=== PATIENT | male | born 1970 | race American Indian/Alaskan Native ===

== ENCOUNTER 2016-02-04 16:07 | Emergency (ER) | payer OTHER ==
[2016-02-04] MEDS ORDERED: GEODON IM ONE ×2 (16:24→16:25)
[2016-02-04 16:55] LABS: Basophils % (Auto) 0.8 % (0.0-1.8); Eosinophils % (Auto) 1.2 % (0.0-4.3); Hematocrit 48.9 % (35.5-45.6); Hemoglobin 15.4 gm/dl (11.8-15.2); Mean Corpuscular HGB Conc 32 % (32-34); Mean Corpuscular Volume 80 fl (84-94); Platelet Count 320 K/mm3 (140-440); Red Blood Count 6.14 M/mm3 (3.65-5.03); Red Cell Distribution Width 16.4 % (13.2-15.2); White Blood Count 11.1 K/mm3 (4.5-11.0)
[2016-02-04 16:56] LABS: Mean Corpuscular Hemoglobin 25 pg (28-32)
[2016-02-04 16:56] LABS: Urine Drugs of Abuse Note Disclamer
--- NOTE | 2016-02-04 17:02 | Emergency Department Report ---
ED Psych HPI - General Chief Complaint: Psych Stated Complaint: MH EVAL Time Seen by Provider: 02/04/16 16:37 Source: family, police Mode of arrival: Ambulatory Limitations: Altered Mental Status - History of Present Illness Initial Comments: 45-year-old male presents to the emergency Department via law enforcement for mental health evaluation. Per report, the patient has not slept in 3 days. Law enforcement reports that the patient was somewhat confrontational with them. Further history is unable to be obtained from the patient due to his current clinical condition. -: unknown Associated Psychiatric Symptoms: racing thoughts Quality: constant Improves With: none Worsens With: none Treatments Prior to Arrival: placed on mental he - Related Data Allergies Allergy/AdvReac Type Severity Reaction Status Date / Time Unable to Assess Allergy Unverified 02/04/16 16:24 ED Review of Systems ROS: Stated complaint: MH EVAL Other details as noted in HPI Comment: Unobtainable due to pts medical conditions ED Past Medical Hx - Past Medical History Previous Medical History?: Yes Hx Psychiatric Treatment: Yes (bipolar) - Surgical History Past Surgical History?: No - Social History Smoking Status: Never Smoker ED Physical Exam - General Limitations: No Limitations General appearance: alert - Head Head exam: Present: atraumatic, normocephalic - Eye Eye exam: Present: normal appearance, PERRL, EOMI - ENT ENT exam: Present: normal exam, normal orophraynx, mucous membranes moist - Neck Neck exam: Present: normal inspection, full ROM. Absent: tenderness - Respiratory Respiratory exam: Present: normal lung sounds bilaterally. Absent: respiratory distress - Cardiovascular Cardiovascular Exam: Present: normal rhythm, tachycardia, normal heart sounds - GI/Abdominal GI/Abdominal exam: Present: soft, normal bowel sounds. Absent: distended, tenderness - Extremities Exam Extremities exam: Present: normal inspection, full ROM. Absent: tenderness - Back Exam Back exam: Present: normal inspection, full ROM. Absent: tenderness - Neurological Exam Neurological exam: Present: alert. Absent: motor sensory deficit - Psychiatric Psychiatric exam: Present: manic, other (patient is hyperverbal with racing, tangential thoughts. Patient not cooperative with questioning.) - Skin Skin exam: Present: warm, dry, intact ED Course Vital Signs 02/04/16 02/04/16 16:46 16:55 Temperature 98.1 F Pulse Rate 148 H Respiratory 18 Rate Blood Pressure 136/96 O2 Sat by Pulse 100 100 Oximetry - Reevaluation(s) Reevaluation #1: 02/04/16 17:01 Form 1013 has been signed and placed on the patient's chart. IM Geodon was administered. Checking labs for medical clearance. Patient will need mental health evaluation. Reevaluation #2: 02/04/16 17:29 Patient has been medically cleared and evaluated by mental health. Patient is currently awaiting placement. ED Medical Decision Making - Lab Data Result diagrams: 02/04/16 16:26 02/04/16 16:26 - Differential Diagnosis bipolar disorder, nohelia Critical care attestation.: If time is entered above; I have spent that time in minutes in the direct care of this critically ill patient, excluding procedure time. ED Disposition Clinical Impression: Bipolar disorder with severe nohelia Disposition: DC/TX PSY HOSP/PSY UNIT Is pt being admited?: No Condition: Stable Time of Disposition: 17:30
[2016-02-04 17:05] LABS: Bilirubin,Urine NEG (Negative); Blood,Urine NEG (Negative); Ketones,Urine TR mg/dL (Negative); Leukocyte Esterase,Urine NEG (Negative); Mucus,Urine 3+ /HPF; Nitrite,Urine NEG (Negative)
[2016-02-04 17:11] LABS: Anion Gap 29 mmol/L; BUN/Creatinine Ratio 11.33; Blood Urea Nitrogen 17 mg/dL (9-20); Carbon Dioxide 17 mmol/L (22-30); Chloride 95.5 mmol/L (98-107); Glucose 136 mg/dL (75-100); Sodium 137 mmol/L (137-145)
--- NOTE | 2016-02-05 16:21 | Emergency Department Report ---
Blank Doc - Documentation Documentation: Patient's medical record reviewed. Called the lab to verify values: sodium is 137, potassium 4.0, chloride 95.5, and anion gap of 29. Patient was medicated initially upon arrival but no standing psychiatric medications ordered. Tachycardic at 148 and agitated upon arrival with most recent heart rate 112 vitals this a.m. Requested that nurse to repeat heart rate. Patient awaiting acceptance. Heart rate was 106 when rechecked. I initiated IV fluids 1 L of normal saline. Went to room to assess patient while lying supine receiving IV fluids heart rate 96 and increases to 110 while I'm speaking to him. Patient states he has a history of elevated heart rate chronically. He denies chest pain, shortness of breath, Edema, calf tenderness, recent travel, or history of DVT. Patient is currently oriented and cooperative. He states he has a history of psychosis times one day then returns to normal and does not feel that he needs hospitalization. He is requested to be discharged with rescinding of 1013 at this time. I informed him I cannot rescind 1013 at this time however, instruct the nurse to order a [facility] specialist consult for possible discharge tomorrow upon psychiatric clearance.
[2016-02-05] MEDS ORDERED: NACL 0.9% 1000 ML 1,000 ML ONE (16:46)
[2016-02-05] MEDS ORDERED: NACL 0.9% 1000 ML IV STA (17:13)
--- NOTE | 2016-02-06 20:39 | Emergency Department Report ---
Blank Doc - Documentation Documentation: Vital signs reviewed and have improved with improvement in heart rate. Patient has remained calm and cooperative to the ED. Yesterday I instructed nurse Elizabeth to order a clinical nurse specialist. The patient has not been performed. At this time I have instructed the current nurse Sukhwinder Cochran to order the clinical nurse specialist evaluation for today since patient is no longer psychotic and cooperative and has not required additional medications.
[2016-02-06] MEDS ORDERED: BENADRYL PO PRN (21:30)
[2016-02-07 08:14] VITALS: BP 132/82
--- NOTE | 2016-02-07 13:01 | Emergency Department Report ---
Blank Doc - Documentation Documentation: Patient has been reassessed by mental health and has returned to his baseline mental status. Recommendations are to rescind the 1013. Reevaluation of the patient shows the patient is alert and oriented. He is exhibiting no signs of psychosis at this time. Form 1013 will be rescinded and the patient will be discharged home to follow-up as an outpatient.
== END 2016-02-07 15:07 | disposition home or self-care (01) ==
LOC: ED 16:07 → EEVIPCON 16:07 → ED 02-07 15:07
DX: F31.9 Bipolar disorder, unspecified (principal)
CPT/HCPCS: 36415; 80048; 81001; 85025; 96372; 99285; G0479; G0480; J3486; J7030; 80301; 80320

== ENCOUNTER 2021-01-30 22:22 | Emergency (ER) | payer SELFPAY ==
--- NOTE | 2021-01-30 23:04 | Emergency Department Report ---
HPI - HPI HPI: [facility] 5 The patient is a 50-year-old male present with a chief complaint of "agitation. "The patient lives at a senior living and apparently 911 was called secondary to the patient being agitated. No specifics about this agitation were given. The patient is asked what happened he initially remained silent but smiles. The patient eventually states "I suffer from psychosis" And then stops and smiles again. When prompted again the patient replies "I guess I was excited about tomorrow" And then stops and smiles and does not answer any further questions except for denying suicidal ideation <PRISCILLA REID - Last Filed: 01/31/21 01:10> <AUTUMN MISTRY - Last Filed: 01/31/21 11:20> - General Chief Complaint: Psych Time Seen by Provider: 01/30/21 22:34 ED Past Medical Hx - Past Medical History Previous Medical History?: No Hx Psychiatric Treatment: Yes (bipolar) - Surgical History Past Surgical History?: No - Family History Family history: no significant - Social History Smoking Status: Current Every Day Smoker (2/3 pack/day) Substance Use Type: None <PRISCILLA REID - Last Filed: 01/31/21 01:10> <AUTUMN MISTRY - Last Filed: 01/31/21 11:20> - Medications Home Medications: Home Medications Medication Instructions Recorded Confirmed Last Taken Type Quetiapine Fumarate [SEROquel] 400 mg PO QHS #30 tablet 01/31/21 Unknown Rx ED Review of Systems ROS: Stated complaint: psychosis Other details as noted in HPI Constitutional: no symptoms reported Eyes: denies: eye pain ENT: denies: throat pain Respiratory: no symptoms reported Cardiovascular: denies: chest pain Endocrine: no symptoms reported Gastrointestinal: denies: abdominal pain Genitourinary: denies: dysuria Neurological: denies: headache Psychiatric: denies: suicidal thoughts <PRISCILLA REID - Last Filed: 01/31/21 01:10> ROS: Stated complaint: psychosis Other details as noted in HPI <AUTUMN MISTRY - Last Filed: 01/31/21 11:20> Physical Exam - Physical Exam Vital Signs: Vital Signs 01/30/21 22:24 Temperature 98.4 F Pulse Rate 112 H Respiratory 18 Rate Blood Pressure 123/83 [Right] O2 Sat by Pulse 96 Oximetry Physical Exam: GENERAL: The patient is well-developed well-nourished male lying on stretcher not appearing to be in acute distress. [] HEENT: Normocephalic. Atraumatic. Extraocular motions are intact. Patient has moist mucous membranes. NECK: Supple. Trachea midline CHEST/LUNGS: Clear to auscultation. There is no respiratory distress noted. HEART/CARDIOVASCULAR: Regular. There is no tachycardia. There is no gallop rub or murmur. ABDOMEN: Abdomen is soft, nontender. Patient has normal bowel sounds. There is no abdominal distention. SKIN: There is no rash. There is no edema. There is no diaphoresis. NEURO: The patient is awake, alert, and oriented. The patient is cooperative. The patient has no focal neurologic deficits. The patient has normal speech. GCS 15 MUSCULOSKELETAL: There is no evidence of acute injury. <PRISCILLA REID K - Last Filed: 01/31/21 01:10> - Physical Exam Vital Signs: Vital Signs 01/30/21 01/31/21 01/31/21 22:24 01:07 01:52 Temperature 98.4 F 98.4 F Pulse Rate 112 H 103 H Respiratory 18 18 Rate Blood Pressure 123/83 100/79 [Right] O2 Sat by Pulse 96 98 98 Oximetry 01/31/21 02:00 Temperature 98.4 F Pulse Rate 103 H Respiratory 18 Rate Blood Pressure 100/79 [Right] O2 Sat by Pulse 98 Oximetry <AUTUMN MISTRY C - Last Filed: 01/31/21 11:20> ED Course Vital Signs 01/30/21 22:24 Temperature 98.4 F Pulse Rate 112 H Respiratory 18 Rate Blood Pressure 123/83 [Right] O2 Sat by Pulse 96 Oximetry <PRISCILLA REID K - Last Filed: 01/31/21 01:10> Vital Signs 01/30/21 01/31/21 01/31/21 22:24 01:07 01:52 Temperature 98.4 F 98.4 F Pulse Rate 112 H 103 H Respiratory 18 18 Rate Blood Pressure 123/83 100/79 [Right] O2 Sat by Pulse 96 98 98 Oximetry 01/31/21 02:00 Temperature 98.4 F Pulse Rate 103 H Respiratory 18 Rate Blood Pressure 100/79 [Right] O2 Sat by Pulse 98 Oximetry <AUTUMN MISTRY Werner - Last Filed: 01/31/21 11:20> ED Medical Decision Making - Lab Data Result diagrams: 01/30/21 23:01 01/30/21 23:01 Laboratory Tests 01/30/21 01/30/21 01/30/21 23:01 23:01 23:01 WBC 8.7 RBC 5.97 H Hgb 15.2 Hct 48.1 H MCV 81 L MCH 26 L MCHC 32 RDW 16.5 H Plt Count 343 Lymph % (Auto) 31.3 Holmes % (Auto) 8.0 H Eos % (Auto) 3.2 Baso % (Auto) 0.6 Lymph # (Auto) 2.7 Holmes # (Auto) 0.7 Eos # (Auto) 0.3 Baso # (Auto) 0.1 Seg Neutrophils % 56.9 Seg Neutrophils # 4.9 Sodium 140 Potassium 4.6 Chloride 103.3 Carbon Dioxide 25 Anion Gap 16 BUN 19 Creatinine 1.4 H Estimated GFR > 60 BUN/Creatinine Ratio 14 Glucose 114 H Calcium 9.6 Urine Color Urine Turbidity Urine pH Ur Specific Snelling Urine Protein Urine Glucose (UA) Urine Ketones Urine Blood Urine Nitrite Urine Bilirubin Urine Urobilinogen Ur Leukocyte Esterase Urine WBC (Auto) Urine RBC (Auto) Urine Mucus Salicylates < 0.3 L Urine Opiates Screen Urine Methadone Screen Acetaminophen Ur Barbiturates Screen Ur Phencyclidine Scrn Ur Amphetamines Screen U Benzodiazepines Scrn Urine Cocaine Screen U Marijuana (THC) Screen Drugs of Abuse Note Plasma/Serum Alcohol 01/30/21 01/30/21 01/31/21 23:01 23:01 00:41 WBC RBC Hgb Hct MCV MCH MCHC RDW Plt Count Lymph % (Auto) Holmes % (Auto) Eos % (Auto) Baso % (Auto) Lymph # (Auto) Holmes # (Auto) Eos # (Auto) Baso # (Auto) Seg Neutrophils % Seg Neutrophils # Sodium Potassium Chloride Carbon Dioxide Anion Gap BUN Creatinine Estimated GFR BUN/Creatinine Ratio Glucose Calcium Urine Color Yellow Urine Turbidity Clear Urine pH 5.0 Ur Specific Snelling 1.025 Urine Protein <15 mg/dl Urine Glucose (UA) Neg Urine Ketones Neg Urine Blood Neg Urine Nitrite Neg Urine Bilirubin Neg Urine Urobilinogen < 2.0 Ur Leukocyte Esterase Neg Urine WBC (Auto) 1.0 Urine RBC (Auto) 1.0 Urine Mucus Few Salicylates Urine Opiates Screen Urine Methadone Screen Acetaminophen 5.0 L Ur Barbiturates Screen Ur Phencyclidine Scrn Ur Amphetamines Screen U Benzodiazepines Scrn Urine Cocaine Screen U Marijuana (THC) Screen Drugs of Abuse Note Plasma/Serum Alcohol < 0.01 01/31/21 00:41 WBC RBC Hgb Hct MCV MCH MCHC RDW Plt Count Lymph % (Auto) Holmes % (Auto) Eos % (Auto) Baso % (Auto) Lymph # (Auto) Holmes # (Auto) Eos # (Auto) Baso # (Auto) Seg Neutrophils % Seg Neutrophils # Sodium Potassium Chloride Carbon Dioxide Anion Gap BUN Creatinine Estimated GFR BUN/Creatinine Ratio Glucose Calcium Urine Color Urine Turbidity Urine pH Ur Specific Snelling Urine Protein Urine Glucose (UA) Urine Ketones Urine Blood Urine Nitrite Urine Bilirubin Urine Urobilinogen Ur Leukocyte Esterase Urine WBC (Auto) Urine RBC (Auto) Urine Mucus Salicylates Urine Opiates Screen Presumptive negative Urine Methadone Screen Presumptive negative Acetaminophen Ur Barbiturates Screen Presumptive negative Ur Phencyclidine Scrn Presumptive negative Ur Amphetamines Screen Presumptive negative U Benzodiazepines Scrn Presumptive negative Urine Cocaine Screen Presumptive negative U Marijuana (THC) Screen Presumptive negative Drugs of Abuse Note Disclamer Plasma/Serum Alcohol - Differential Diagnosis History of agitation <PRISCILLA REID - Last Filed: 01/31/21 01:10> - Lab Data Result diagrams: 01/30/21 23:01 01/30/21 23:01 <AUTUMN MISTRY - Last Filed: 01/31/21 11:20> Critical care attestation.: If time is entered above; I have spent that time in minutes in the direct care of this critically ill patient, excluding procedure time. <PRISCILLA REID - Last Filed: 01/31/21 01:10> Critical care attestation.: If time is entered above; I have spent that time in minutes in the direct care of this critically ill patient, excluding procedure time. <AUTUMN MISTRY - Last Filed: 01/31/21 11:20> ED Disposition <PRISCILLA REID - Last Filed: 01/31/21 01:10> Is pt being admited?: No Does the pt Need Aspirin: No <AUTUMN MISTRY - Last Filed: 01/31/21 11:20> Clinical Impression: Psychosis Disposition: 01 HOME / SELF CARE / HOMELESS Condition: Stable Additional Instructions: Professional and Agency Contacts To help [facility](28/08) [place] Crisis Line: Suicide Prevention Line: Crisis Text Line: Text START to 395267 Emergency: 911 Outpatient COMMUNITY Behavioral Health Resources: [place]: [facility] [address] [place], [place] [address] [place]: [facility] [address] [place] [address] [place]: [facility] Health - [address] [place] [address] Sunday thru Sunday - 8am - 5pm [place]: [facility] Service Address: [address] [place] [address] [place]: [facility] Address: [address] [place] [address] Sunday thru Sunday- 7am-2pm [facility] Address: [address] [place] [address] Sunday thru Sunday: 8:30AM-5PM Phone: [phone] In case of an emergency, please contact the following numbers: [place] Crisis and Access Line: Number: Crisis Text Line: (Text START) Number: 130265 Suicide Prevention Line: Number: Emergency Number: 911 SUBSTANCE ABUSE PROGRAMS: [facility]: Location: [place], [place] [facility] Address: [address] [place] [address] [facility]: Address: [address] [place] [address] [facility]: Address: [address] [place] [address] [facility]: Address: [address] [place] [address] [facility] Address: [address] [place] [address]. Please contact above numbers to attempt placement into free based program. Medicaid Programs: [facility]: Address: [address] [facility], [place] [address] [facility]: Address: [address] [place] [address] OUTPATIENT MENTAL HEALTH RESOURCES [facility], [address] [place] [address] [facility] Lisa Barrow MD: [address] [facility] [address] [place] [address] [facility]: [address] [place] [address] [place] [address] [phone] [facility] ([place], [place]) [facility]: [address] [facility] [address] [place] [address] [facility]: [address] [facility] [address] [facility] [id number] [facility]: [address] [place], [place] Davian Kc MD: [address] [facility] [id number] [place] [facility]: [address] [place], [place] [id number] [phone] [place] CRISIS AND ACCESS LINE: * Prescriptions: Quetiapine Fumarate [SEROquel] 400 mg PO QHS #30 tablet Referrals: PRIMARY CARE, [Primary Care Provider] - 3-5 Days
[2021-01-30 23:36] LABS: Basophils # (Auto) 0.1 K/mm3 (0.0-0.1); Basophils % (Auto) 0.6 % (0.0-1.8); Eosinophils # (Auto) 0.3 K/mm3 (0.0-0.4); Eosinophils % (Auto) 3.2 % (0.0-4.3); Hematocrit 48.1 % (35.5-45.6); Hemoglobin 15.2 gm/dl (11.8-15.2); Lymphocytes # (Auto) 2.7 K/mm3 (1.2-5.4); Lymphocytes % (Auto) 31.3 % (13.4-35.0); Mean Corpuscular HGB Conc 32 % (32-34); Mean Corpuscular Volume 81 fl (84-94); Monocytes # (Auto) 0.7 K/mm3 (0.0-0.8); Platelet Count 343 K/mm3 (140-440); Red Blood Count 5.97 M/mm3 (3.65-5.03); Red Cell Distribution Width 16.5 % (13.2-15.2)
[2021-01-30 23:38] LABS: BUN/Creatinine Ratio 14; Blood Urea Nitrogen 19 mg/dL (9-20); Calcium 9.6 mg/dL (8.4-10.2); Hemolysis Index 4
[2021-01-31 00:55] LABS: Bilirubin,Urine NEG (Negative); Blood,Urine NEG (Negative); Color,Urine Yellow (Yellow); Mucus,Urine FEW /HPF; Protein,Urine <15 mg/dL mg/dL (Negative); Urobilinogen,Urine < 2.0 mg/dL (<2.0)
[2021-01-31 01:03] LABS: Amphetamine Screen,Urine PRESUMPTIVE NEGATIVE; Benzodiazepines Screen,Urine PRESUMPTIVE NEGATIVE; Cannabinoid Screen,Urine PRESUMPTIVE NEGATIVE; Cocaine Screen,Urine PRESUMPTIVE NEGATIVE; Methadone Screen,Urine PRESUMPTIVE NEGATIVE; Opiate Screen,Urine PRESUMPTIVE NEGATIVE
[2021-01-31 01:53] VITALS: BP 100/79
--- NOTE | 2021-01-31 09:59 | Consultation ---
History of Present Illness - Reason for Consult Consult date: 01/31/21 Reason for consult: psychosis - History of Present Psychiatric Illness The patient was seen today. He is a 50y/o male patient who was brought in from his skilled nursing for psychosis. During my evaluation of the patient he is calm, and cooperative. The patient is smiling when I walk up. He says "I suffer from psychosis." The patient says he started hearing voices, and "I was talking to myself, but I think I was just startled." The patient says he had an episode like this about a month ago and was at [facility]. He says "I have theses episodes but sometimes it's years in between." He says "prior to this happening a month ago it had been years since I had an episode like this." The patient says he ken es seroquel 400mg nightly. He says he only has about a week left and need a refill. 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 He says "at some point I would like to get them back." It's unknown if this is true or not. The patient denies SI/HI. He says "absolutely not. I have never been that in my life." He also currently denies hallucinations of any kind. The patient says he is currently under the [facility] team. He denies any illicit drug use, alcohol or nicotine. PAST PSYCHIATRIC HISTORY Diagnoses: Schizophrenia, Bipolar Suicide attempts or Self-harm behavior: Denies Prior psychiatric hospitalizations: Yes Substance Abuse history: Denies Previous psychiatric medications tried: Seroquel Outpatient treatment: Unknown PAST MEDICAL HISTORY: None reported Family Psychiatric History: None reported or documented SOCIAL HISTORY Marital Status: Living Arrangements: Intermediate Employment Status: unemployed Access to guns/weapons: Denies Education: "law school" History of Abuse: Denies Legal History: None reported REVIEW OF SYSTEMS Constitutional: Negative for weight loss ENT: Negative for stridor Respiratory: Negative for cough or hemoptysis All other systems reviewed and are negative MENTAL STATUS EXAMINATION General Appearance and Behavior: Age appropriate, good hygiene, not wearing appropriate clothes, good eye contact, cooperative polite with questioning. Cooperation: Participating/engaged Psychomotor Behavior: Psychomotor normal Mood: okay Affect and affective range: Congruent with stated mood Thought Process: Goal directed Thought Content: None Speech: normal tone and pace Suicidal Ideation: Denies Homicidal Ideation: Denies Hallucinations: Denies Delusions: None elicited Impulse Control: Limited Insight and Judgment: Limited insight and fair judgment Memory: Normal Attention: Normal Orientation: Alert, oriented, Assessment and Plan Schizophrenia Treatment Seroquel 400mg po qhs Medical: Per primary Sitter: Defer to primary Disposition: Do not recommend acute inpatient treatment. Will sign off. Thanks The patient to follow up with [facility] team 7 to 14 days upon discharge Case staffed with Dr. Beavers Medications and Allergies Allergies Allergy/AdvReac Type Severity Reaction Status Date / Time No Known Allergies Allergy Unverified 02/05/16 14:40 Home Medications Medication Instructions Recorded Confirmed Last Taken Type Quetiapine Fumarate [SEROquel] 400 mg PO QHS #30 tablet 01/31/21 Unknown Rx Mental Status Exam - Vital signs Last Vital Signs Temp 98.4 F 01/31/21 02:00 Pulse 103 H 01/31/21 02:00 Resp 18 01/31/21 02:00 BP 100/79 01/31/21 02:00 Pulse Ox 98 01/31/21 02:00 Results Result Diagrams: 01/30/21 23:01 01/30/21 23:01 Abnormal lab results 01/30/21 01/30/21 01/30/21 Range/Units 23:01 23:01 23:01 RBC 5.97 H (3.65-5.03) M/mm3 Hct 48.1 H (35.5-45.6) % MCV 81 L (84-94) fl MCH 26 L (28-32) pg RDW 16.5 H (13.2-15.2) % Jasper % (Auto) 8.0 H (0.0-7.3) % Creatinine 1.4 H (0.8-1.3) mg/dL Glucose 114 H (75-100) mg/dL Salicylates < 0.3 L (2.8-20.0) mg/dL Acetaminophen (10.0-30.0) ug/mL 01/30/21 Range/Units 23:01 RBC (3.65-5.03) M/mm3 Hct (35.5-45.6) % MCV (84-94) fl MCH (28-32) pg RDW (13.2-15.2) % Jasper % (Auto) (0.0-7.3) % Creatinine (0.8-1.3) mg/dL Glucose (75-100) mg/dL Salicylates (2.8-20.0) mg/dL Acetaminophen 5.0 L (10.0-30.0) ug/mL All other labs normal.
--- NOTE | 2021-01-31 11:29 | Emergency Department Report ---
Blank Doc - Documentation Documentation: 50-year-old male with psychosis not on a 1013. Patient has been cleared by [facility] and will be discharged with prescriptions and follow-up
== END 2021-01-31 12:47 | disposition home or self-care (01) ==
LOC: ED 22:22 → EEVIPCON 22:22 → ED 01-31 12:47
DX: F29 Unspecified psychosis not due to a substance or known physiological condition (principal); F31.9 Bipolar disorder, unspecified; F17.200 Nicotine dependence, unspecified, uncomplicated
CPT/HCPCS: 36415; 80048; 80307; 80320; 81001; 85025; 99283; G0480